=== PATIENT | male | born 1965 | race Caucasian/White ===

== ENCOUNTER 2025-07-07 07:31 | Day surgery (SDC) | payer MEDICAID ==
[2025-07-03 13:49] VITALS: BMI 17.4
[2025-07-07] MEDS ORDERED: PROPOFOL 20 ML ONE (09:47)
[2025-07-07] MEDS ORDERED: PHENYLEPHRINE-NS 100 MCG/ML 10 ML SYRINGE ONE (10:17)
[2025-07-07] MEDS ORDERED: Glycopyrrolate 0.2 MG/ML 5 ML SYRINGE ONE (10:17)
[2025-07-07] MEDS ORDERED: Lidocaine 1% PF 5 ML VIAL ONE (10:17)
[2025-07-07] MEDS ORDERED: oxyCODONE 5 MG TAB ONE (10:44)
== END 2025-07-07 12:40 | disposition home or self-care (01) ==
LOC: CSHSDC 07:31
PROVIDERS: ATTEND Surgery
PROC: 0DBN8ZX Excision of Sigmoid Colon, Via Natural or Artificial Opening Endoscopic, Diagnostic (ICD-10-PCS; principal; 2025-07-07)
DX: D50.9 Iron deficiency anemia, unspecified (principal); K51.40 Inflammatory polyps of colon without complications; K64.1 Second degree hemorrhoids; E78.5 Hyperlipidemia, unspecified; F17.200 Nicotine dependence, unspecified, uncomplicated; Z90.49 Acquired absence of other specified parts of digestive tract; Z88.5 Allergy status to narcotic agent; Z88.8 Allergy status to other drugs, medicaments and biological substances
CPT/HCPCS: 88305; J2704